=== PATIENT | male | born 1965 | race Caucasian/White ===

== ENCOUNTER → 2016-09-21 | Outpatient (CLI) | payer OTHER ==
[2016-09-21 14:20] LABS: Basophils % (A) 1 %; CH 27.4; CHCM 32.3; Eosinophils # (A) 0.2 k/uL (0-0.7); Eosinophils % (A) 3 %; HCT 47.7 % (39.0-53.0); HDW 2.67; HGB 14.8 gm/dL (13.0-17.5); Luc # (Auto) 0.19; Luc % (Auto) 3; Lymphocytes # (A) 1.5 k/uL (1.0-4.8); Lymphocytes % (A) 22 %; MCH 26.4 pg (25.0-35.0); MCV 85.3 fL (80.0-100.0); Mean Platelet Volume 8.1; Monocytes # (A) 0.8 k/uL (0-1.0); Monocytes % (A) 12 %; Neutrophils % (A) 60 %; RBC 5.59 m/uL (4.30-5.90); RDW 13.6 % (11.5-15.5); WBC 6.7 k/uL (3.8-10.6); WBC (Perox) 6.81
--- NOTE | 2016-09-21 14:35 | XR ---
EXAMINATION TYPE: XR chest 2V DATE OF EXAM: 09/21/2016 2:23 PM COMPARISON: Prior chest x-ray November 04, 2014. HISTORY: Pneumonia per order. TECHNIQUE: Frontal and lateral views of the chest are obtained. FINDINGS: There is no focal air space opacity, pleural effusion, or pneumothorax seen. Underlying em physematous change is felt present. The cardiac silhouette size is stable and enlarged. The osseous s tructures are intact. Cholecystectomy clips are noted. IMPRESSION: Chronic emphysematous change and cardiomegaly without acute pulmonary process identified .
[2016-09-21 14:49] LABS: Anion Gap 12 mmol/L; Blood Urea Nitrogen 12 mg/dL (9-20); Calcium 9.4 mg/dL (8.4-10.2); Carbon Dioxide 28 mmol/L (22-30); Chloride 103 mmol/L (98-107); Glucose 104 mg/dL (74-99); Non-African American GFR(MDRD) >60 (>60 ml/min/1.73 sqM); Potassium 4.3 mmol/L (3.5-5.1); Sodium 143 mmol/L (137-145)
== END | disposition home or self-care (01) ==
LOC: LABWHC1 13:56
PROVIDERS: ATTEND Internal Medicine
DX: J43.9 Emphysema, unspecified (principal); I51.7 Cardiomegaly; N39.0 Urinary tract infection, site not specified
CPT/HCPCS: 36415; 71020; 80048; 85025; 87502

== ENCOUNTER 2017-07-21 00:30 | Emergency (ER) | payer OTHER ==
[2017-07-21 00:40] VITALS: BP 178/107; PULSE 89; RESP 18; TEMP 98.2
--- NOTE | 2017-07-21 01:11 | XR ---
EXAMINATION TYPE: XR knee complete LT DATE OF EXAM: 07/21/2017 COMPARISON: NONE HISTORY: Pain TECHNIQUE: 3 views FINDINGS: I see no fracture nor dislocation. Joint spaces are fairly normal. There is no sign of knee joint effusion. IMPRESSION: Negative left knee exam
[2017-07-21] MEDS ORDERED: HYDROmorphone 1 MG/ML 1 ML SYRINGE IM STA (01:22)
--- NOTE | 2017-07-27 01:02 | CDI ---
Dear Missael DOE, PAC: Please do addendum ER document. Thank you, Julio Haley, Aerophysics Engineer. If you have any questions, please contact [employer] at [phone]. FIORD
== END 2017-07-21 01:42 | disposition home or self-care (01) ==
LOC: EC 00:30
DX: S89.92XA Unspecified injury of left lower leg, initial encounter (principal); E78.5 Hyperlipidemia, unspecified; I10 Essential (primary) hypertension; Z79.52 Long term (current) use of systemic steroids; Z79.899 Other long term (current) drug therapy; Z88.1 Allergy status to other antibiotic agents; Z98.890 Other specified postprocedural states; X58.XXXA Exposure to other specified factors, initial encounter
CPT/HCPCS: 73562; 99283; 96372; L1830; J1170

== ENCOUNTER 2018-10-15 12:36 | Emergency (ER) | payer BC, OTHER ==
[2018-10-15] MEDS ORDERED: ONDANSETRON 4 MG/2 ML VIAL IVP STA (12:59)
[2018-10-15] MEDS ORDERED: SODIUM CHLORIDE 0.9% 1,000 ML IV ONE ×2 (13:00→15:21)
--- NOTE | 2018-10-15 13:04 | ED ---
General Adult HPI <Manjinder Ballesteros - Last Filed: 10/15/18 16:19> - General Source: patient, RN notes reviewed Mode of arrival: ambulatory Limitations: no limitations <Cherelle Vo - Last Filed: 10/15/18 21:07> - General Chief complaint: Nausea/Vomiting/Diarrhea Stated complaint: Acute diverticular disesase Time Seen by Provider: 10/15/18 12:48 - History of Present Illness Initial comments: Patient is a 53-year-old male who presents the emergency department with his with complaint of nausea, vomiting, diarrhea and abdominal pain that started yesterday. He reports having about 15 episodes of diarrhea last night and about 5 or 6 today. He reports they are watery; no blood. Reports one episode of vomiting today; nonbloody, nonbilious. The abdominal pain is in the lower abdomen and hurts worse with pressure. Also reports a fever at home that was low-grade. Also reports feeling fatigued. Patient denies any recent shortness of breath, chest pain, back pain, numbness or tingling, dysuria or hematuria, headaches or visual changes, or any other complaints. (Cherelle Vo) - Related Data Home Medications Medication Instructions Recorded Confirmed Fenofibrate,Micronized 134 mg PO DAILY 10/21/14 10/15/18 [Fenofibrate] Omeprazole [PriLOSEC] 20 mg PO [id number] 10/21/14 10/15/18 Ascorbic Acid [Vitamin C] 1,000 mg PO DAILY 10/15/18 10/15/18 Cholecalciferol [Vitamin D3] 2,000 unit PO DAILY 10/15/18 10/15/18 Fenofibrate,Micronized 134 mg PO DAILY 10/15/18 10/15/18 [Fenofibrate] Fosinopril Sodium [Monopril] 20 mg PO DAILY 10/15/18 10/15/18 Metoprolol Succinate [Toprol XL] 50 mg PO DAILY 10/15/18 10/15/18 Previous Rx's Medication Instructions Recorded Ondansetron Odt [Zofran ODT] 4 mg PO Q8HR PRN #20 tab 10/15/18 Allergies Allergy/AdvReac Type Severity Reaction Status Date / Time tetracycline Allergy Diarrhea Verified 10/15/18 13:02 Review of Systems ROS Other: All systems not noted in ROS Statement are negative. <FavianManjinder - Last Filed: 10/15/18 16:19> ROS Other: All systems not noted in ROS Statement are negative. <VoCherelle Zaira - Last Filed: 10/15/18 21:07> ROS Statement: Those systems with pertinent positive or pertinent negative responses have been documented in the HPI. Past Medical History Past Medical History: Hyperlipidemia, Hypertension Additional Past Medical History / Comment(s): kidney stones History of Any Multi-Drug Resistant Organisms: None Reported Past Surgical History: Cholecystectomy Additional Past Surgical History / Comment(s): left knee surgery Past Psychological History: No Psychological Hx Reported Smoking Status: Never smoker Past Alcohol Use History: Rare Past Drug Use History: None Reported <Cherelle Vo Zaira - Last Filed: 10/15/18 21:07> General Exam Limitations: no limitations General appearance: alert, in no apparent distress Head exam: Present: atraumatic, normocephalic Eye exam: Present: normal appearance Respiratory exam: Present: normal lung sounds bilaterally. Absent: wheezes, rales, rhonchi Cardiovascular Exam: Present: tachycardia GI/Abdominal exam: Present: soft, tenderness (Right lower and left lower quadrants.), normal bowel sounds. Absent: distended, guarding, rigid Extremities exam: Present: normal inspection Neurological exam: Present: alert, oriented X3 Skin exam: Present: warm, dry <VoCherelle Zaira - Last Filed: 10/15/18 21:07> Course <Manjinder Ballesteros - Last Filed: 10/15/18 16:19> <Cherelle Vo Zaira - Last Filed: 10/15/18 21:07> Vital Signs 10/15/18 10/15/18 10/15/18 12:44 14:00 14:30 Temperature 99.4 F Pulse Rate 130 H 106 H 106 H Respiratory 20 17 16 Rate Blood Pressure 146/85 118/97 120/79 O2 Sat by Pulse 95 96 96 Oximetry 10/15/18 10/15/18 10/15/18 15:00 15:30 17:08 Temperature 98.5 F Pulse Rate 100 108 H 102 H Respiratory 18 18 18 Rate Blood Pressure 125/95 117/90 120/89 O2 Sat by Pulse 97 97 96 Oximetry - Reevaluation(s) Reevaluation #1: 10/15/18 16:19 PA supervision: I personally do a [id number] evaluation patient did discuss the findings with him and his family. Patient did have lower abdominal pain and diarrhea since chest today. He does demonstrate evidence of dehydration with tachycardia. He has no pain in his chest he does have some occasional lower abdominal discomfort. And 1 episode nausea vomiting. Computed tomography scan shows diverticulosis but no evidence of diverticulitis or other pathology at this time. I did discuss the case with Dr. Dawn. Patient will be discharged after influenza testing and he will be getting a prescription for stool evaluation. Thus far he cannot produce urine but has had no symptoms. ( Manjinder Ballesteros) Medical Decision Making - Lab Data Result diagrams: 10/15/18 13:40 10/15/18 13:40 <Manjinder Ballesteros - Last Filed: 10/15/18 16:19> - Lab Data Result diagrams: 10/15/18 13:40 10/15/18 13:40 <Cherelle Vo - Last Filed: 10/15/18 21:07> - Medical Decision Making Patient was tachycardic and given two 1,000 mL fluid boluses of normal saline. Given Zofran for nausea. CT of the abdomen and pelvis revealed moderate fatty infiltration through the liver. It also revealed a few scattered diverticuli without acute diverticulitis within the sigmoid colon region. Influenza swabs ordered; patient wishes to have results after discharge. Stool studies and UA ordered; patient was able to give samples here and wishes to have results after discharge. Will prescribe Zofran. Patient instructed to follow-up with his PCP tomorrow. Case discussed in detail with attending physician Dr. Ballesteros. (Cherelle Vo) - Lab Data Lab Results 10/15/18 10/15/18 10/15/18 Range/Units 13:40 13:40 13:40 WBC 8.9 (3.8-10.6) k/uL RBC 6.26 H (4.30-5.90) m/uL Hgb 16.4 (13.0-17.5) gm/dL Hct 51.6 (39.0-53.0) % MCV 82.3 (80.0-100.0) fL MCH 26.1 (25.0-35.0) pg MCHC 31.7 (31.0-37.0) g/dL RDW 14.1 (11.5-15.5) % Plt Count 208 (150-450) k/uL Neutrophils % 78 % Lymphocytes % 12 % Monocytes % 7 % Eosinophils % 1 % Basophils % 0 % Neutrophils # 7.0 (1.3-7.7) k/uL Lymphocytes # 1.0 (1.0-4.8) k/uL Monocytes # 0.6 (0-1.0) k/uL Eosinophils # 0.1 (0-0.7) k/uL Basophils # 0.0 (0-0.2) k/uL Sodium 139 (137-145) mmol/L Potassium 4.4 (3.5-5.1) mmol/L Chloride 105 (98-107) mmol/L Carbon Dioxide 20 L (22-30) mmol/L Anion Gap 14 mmol/L BUN 17 (9-20) mg/dL Creatinine 0.95 (0.66-1.25) mg/dL Est GFR (CKD-EPI)AfAm >90 (>60 ml/min/1.73 sqM) Est GFR (CKD-EPI)NonAf >90 (>60 ml/min/1.73 sqM) Glucose 127 H (74-99) mg/dL Plasma Lactic Acid José Antonio 1.7 (0.7-2.0) mmol/L Calcium 10.1 (8.4-10.2) mg/dL Total Bilirubin 1.9 H (0.2-1.3) mg/dL AST 48 (17-59) U/L ALT 77 H (21-72) U/L Alkaline Phosphatase 50 (38-126) U/L Total Protein 8.9 H (6.3-8.2) g/dL Albumin 5.1 H (3.5-5.0) g/dL Lipase 107 (23-300) U/L Urine Color Urine Appearance (Clear) Urine pH (5.0-8.0) Ur Specific Worth (1.001-1.035) Urine Protein (Negative) Urine Glucose (UA) (Negative) Urine Ketones (Negative) Urine Blood (Negative) Urine Nitrite (Negative) Urine Bilirubin (Negative) Urine Urobilinogen (<2.0) mg/dL Ur Leukocyte Esterase (Negative) C. difficile (EIA) Intrp (Negative) Influenza Type A RNA (Not Detectd) Influenza Type B (PCR) (Not Detectd) 10/15/18 10/15/18 10/15/18 Range/Units 16:35 16:45 16:57 WBC (3.8-10.6) k/uL RBC (4.30-5.90) m/uL Hgb (13.0-17.5) gm/dL Hct (39.0-53.0) % MCV (80.0-100.0) fL MCH (25.0-35.0) pg MCHC (31.0-37.0) g/dL RDW (11.5-15.5) % Plt Count (150-450) k/uL Neutrophils % % Lymphocytes % % Monocytes % % Eosinophils % % Basophils % % Neutrophils # (1.3-7.7) k/uL Lymphocytes # (1.0-4.8) k/uL Monocytes # (0-1.0) k/uL Eosinophils # (0-0.7) k/uL Basophils # (0-0.2) k/uL Sodium (137-145) mmol/L Potassium (3.5-5.1) mmol/L Chloride (98-107) mmol/L Carbon Dioxide (22-30) mmol/L Anion Gap mmol/L BUN (9-20) mg/dL Creatinine (0.66-1.25) mg/dL Est GFR (CKD-EPI)AfAm (>60 ml/min/1.73 sqM) Est GFR (CKD-EPI)NonAf (>60 ml/min/1.73 sqM) Glucose (74-99) mg/dL Plasma Lactic Acid José Antonio (0.7-2.0) mmol/L Calcium (8.4-10.2) mg/dL Total Bilirubin (0.2-1.3) mg/dL AST (17-59) U/L ALT (21-72) U/L Alkaline Phosphatase (38-126) U/L Total Protein (6.3-8.2) g/dL Albumin (3.5-5.0) g/dL Lipase (23-300) U/L Urine Color Yellow Urine Appearance Clear (Clear) Urine pH 6.0 (5.0-8.0) Ur Specific Worth >1.050 H (1.001-1.035) Urine Protein Trace H (Negative) Urine Glucose (UA) Negative (Negative) Urine Ketones Negative (Negative) Urine Blood Negative (Negative) Urine Nitrite Negative (Negative) Urine Bilirubin Negative (Negative) Urine Urobilinogen <2.0 (<2.0) mg/dL Ur Leukocyte Esterase Negative (Negative) C. difficile (EIA) Intrp Negative (Negative) Influenza Type A RNA Not Detected (Not Detectd) Influenza Type B (PCR) Not Detected (Not Detectd) Disposition <Manjinder Ballesteros - Last Filed: 10/15/18 16:19> Is patient prescribed a controlled substance at d/c from ED?: No Time of Disposition: 16:59 <Cherelle Vo - Last Filed: 10/15/18 21:07> Clinical Impression: Vomiting and diarrhea Disposition: HOME SELF-CARE Condition: Good Instructions (If sedation given, give patient instructions): Acute Nausea and Vomiting (ED), Acute Diarrhea (ED) Additional Instructions: Follow-up with your PCP tomorrow. Drink plenty of fluids. Return to the emergency department if your symptoms worsen or other concerns. Prescriptions: Ondansetron Odt [Zofran ODT] 4 mg PO Q8HR PRN #20 tab PRN Reason: Nausea Referrals: Yandel Dawn MD [Primary Care Provider] - 1-2 days
[2018-10-15 14:11] LABS: Basophils % (A) 0 %; Eosinophils # (A) 0.1 k/uL (0-0.7); Eosinophils % (A) 1 %; HCT 51.6 % (39.0-53.0); HGB 16.4 gm/dL (13.0-17.5); Lymphocytes % (A) 12 %; MCH 26.1 pg (25.0-35.0); MCHC 31.7 g/dL (31.0-37.0); MCV 82.3 fL (80.0-100.0); Mean Platelet Volume 7.2; Monocytes # (A) 0.6 k/uL (0-1.0); Monocytes % (A) 7 %; Neutrophils % (A) 78 %; Platelet Count 208 k/uL (150-450); RBC 6.26 m/uL (4.30-5.90); RDW 14.1 % (11.5-15.5); WBC 8.9 k/uL (3.8-10.6)
[2018-10-15 14:31] LABS: ALT 77 U/L (21-72); AST 48 U/L (17-59); Albumin 5.1 g/dL (3.5-5.0); Alkaline Phosphatase 50 U/L (38-126); Anion Gap 14 mmol/L; Blood Urea Nitrogen 17 mg/dL (9-20); Calcium 10.1 mg/dL (8.4-10.2); Carbon Dioxide 20 mmol/L (22-30); Chloride 105 mmol/L (98-107); Glucose 127 mg/dL (74-99); Lipase 107 U/L (23-300); Potassium 4.4 mmol/L (3.5-5.1); Sodium 139 mmol/L (137-145); Total Bilirubin 1.9 mg/dL (0.2-1.3); Total Protein 8.9 g/dL (6.3-8.2)
--- NOTE | 2018-10-15 15:12 | CT ---
EXAMINATION TYPE: CT abdomen pelvis w con DATE OF EXAM: 10/15/2018 COMPARISON: 10/21/2014 INDICATION: Lower abdominal pain. DLP: 1638 mGycm, Automated exposure control for dose reduction was used. CONTRAST: 100ml mL of Isovue 300. Study performed without Oral Contrast TECHNIQUE: Axial images were obtained from above the diaphragm to the pubic rami in the axial plane a t 5 mm thick sections. Reconstructed images are reviewed on the computer in the coronal plane. FINDINGS: Limited CT sections are obtained the lung bases. The lung bases are clear. CT ABDOMEN: Liver: There is moderate fatty infiltration through the liver. Spleen: Normal Pancreas: Normal Adrenal glands: The adrenal glands are normal. Gallbladder: Gallbladder is absent. Kidneys: No masses are evident. No hydronephrosis is present. No cysts are present. Delayed images were obtained through the kidneys, which remain unremarkable. Aorta: Normal Inferior vena cava: Normal. CT PELVIS: Scattered small inguinal adenopathy is present bilaterally Loops of bowel within the abdomen and pelvis are normal. Studies performed without oral contrast limiting their evaluation. A few scattered diverticuli without acute diverticulitis are within the si gmoid colon region. Appendix: Normal as visualized. Urinary bladder: Normal. Genitourinary structures: Prostate is unremarkable. Osseous structures: No suspicious lytic or sclerotic lesions. IMPRESSIONS: 1. Moderate fatty infiltration liver.
[2018-10-15 15:54] VITALS: RESP 18
[2018-10-15 17:05] LABS: Appearance,Urine Clear (Clear); Bilirubin,Urine Negative (Negative); Blood,Urine Negative (Negative); Color,Urine Yellow; Glucose,Urine (UA) Negative (Negative); Ketones,Urine Negative (Negative); Leukocyte Esterase,Urine Negative (Negative); Nitrite,Urine Negative (Negative); Protein,Urine Trace (Negative); Urobilinogen,Urine <2.0 mg/dL (<2.0)
[2018-10-15 17:14] VITALS: BP 120/89; PULSE 102; TEMP 98.5
[2018-10-15 17:24] LABS: Specific Gravity,Urine >1.050 (1.001-1.035)
== END 2018-10-15 17:15 | disposition home or self-care (01) ==
LOC: EC 12:36
DX: R11.2 Nausea with vomiting, unspecified (principal); R19.7 Diarrhea, unspecified; K57.30 Diverticulosis of large intestine without perforation or abscess without bleeding; K76.0 Fatty (change of) liver, not elsewhere classified; R00.0 Tachycardia, unspecified; E78.5 Hyperlipidemia, unspecified; I10 Essential (primary) hypertension; Z79.899 Other long term (current) drug therapy; Z88.1 Allergy status to other antibiotic agents; Z90.49 Acquired absence of other specified parts of digestive tract
CPT/HCPCS: 36415; 80053; 83605; 83690; 85025; 81003; 87324; 87045; 87329; 87328; 83630; 87046; 87502; 74177; 99284; 96374; 96361 ×4; J2405; Q9967

== ENCOUNTER → 2019-07-28 | Outpatient (CLI) | payer BC ==
[2019-07-28 12:58] LABS: Basophils # (A) 0.1 k/uL (0-0.2); Basophils % (A) 1 %; Eosinophils # (A) 0.1 k/uL (0-0.7); Eosinophils % (A) 2 %; HCT 45.1 % (39.0-53.0); HGB 14.5 gm/dL (13.0-17.5); Lymphocytes # (A) 1.2 k/uL (1.0-4.8); Lymphocytes % (A) 20 %; MCH 27.7 pg (25.0-35.0); MCHC 32.2 g/dL (31.0-37.0); MCV 85.9 fL (80.0-100.0); Mean Platelet Volume 6.3; Monocytes # (A) 0.4 k/uL (0-1.0); Monocytes % (A) 7 %; Neutrophils % (A) 68 %; Platelet Count 186 k/uL (150-450); RBC 5.25 m/uL (4.30-5.90)
--- NOTE | 2019-07-28 13:18 | XR ---
EXAMINATION TYPE: XR chest 2V DATE OF EXAM: 07/28/2019 COMPARISON: 09/21/2016 HISTORY: Bronchitis, cough TECHNIQUE: Frontal and lateral views of the chest are obtained. FINDINGS: There is no focal air space opacity, pleural effusion, or pneumothorax seen. The cardiac silhouette size is mildly enlarged as seen on the prior. The osseous structures are intact. Bridgin g anterior osteophytes are seen of the thoracic spine suggesting diffuse skeletal hyperostosis. IMPRESSION: No acute cardiopulmonary process.
== END | disposition home or self-care (01) ==
LOC: LABWHC1 11:25
PROVIDERS: ATTEND Internal Medicine
DX: R05 Cough (principal); J06.9 Acute upper respiratory infection, unspecified
CPT/HCPCS: 36415; 71046; 82785; 85025; 87502

== ENCOUNTER → 2019-09-19 | Outpatient (CLI) | payer BC ==
[2019-09-19 10:15] LABS: Basophils % (A) 1 %; Eosinophils # (A) 0.2 k/uL (0-0.7); Eosinophils % (A) 2 %; HCT 45.7 % (39.0-53.0); HGB 14.7 gm/dL (13.0-17.5); Lymphocytes # (A) 2.1 k/uL (1.0-4.8); Lymphocytes % (A) 33 %; MCH 27.5 pg (25.0-35.0); MCHC 32.1 g/dL (31.0-37.0); MCV 85.6 fL (80.0-100.0); Mean Platelet Volume 7.9; Monocytes # (A) 0.5 k/uL (0-1.0); Monocytes % (A) 7 %; Neutrophils # (A) 3.2 k/uL (1.3-7.7); Neutrophils % (A) 52 %; Platelet Count 189 k/uL (150-450); RBC 5.34 m/uL (4.30-5.90); RDW 13.2 % (11.5-15.5); WBC 6.2 k/uL (3.8-10.6)
[2019-09-19 12:00] LABS: Erythrocyte Sedimentation Rate 2 mm/hr (0-15)
[2019-09-19 17:20] LABS: ALT 46 U/L (10-49); AST 26 U/L (14-35); African American GFR (CKD) 111.8 (60.0-200.0); Albumin/Globulin Ratio 2.15 (1.60-3.17); Alkaline Phosphatase 42 U/L (41-126); BUN/Creat Ratio 16.67 Ratio (12.00-20.00); C Reactive Protein <0.4 mg/dL (0.0-0.8); Calcium 8.8 mg/dL (8.7-10.3); Chloride 109 mmol/L (96-109); Chol/HDL Ratio 4.46; Cholesterol 116 mg/dL (0-200); Creatine Kinase 90 U/L (35-257); Glucose 136 mg/dL (70-110); LDL Cholesterol,Calculated 74.4 mg/dL (0.0-131.0); Magnesium 1.9 mg/dL (1.5-2.4); Non-African American GFR(CKD) 96.5 (60.0-200.0); Phosphorus 2.9 mg/dL (2.4-5.1); Potassium 4.1 mmol/L (3.5-5.5); Sodium 142 mmol/L (135-145); Total Bilirubin 0.5 mg/dL (0.3-1.2); Total Protein 6.3 g/dL (6.2-8.2); Uric Acid 4.9 mg/dL (3.7-8.7)
[2019-09-19 17:54] LABS: Hemoglobin A1C 6.4 % (4.0-6.0)
== END | disposition home or self-care (01) ==
LOC: LABWHC1 09:44
PROVIDERS: ATTEND Internal Medicine
DX: I10 Essential (primary) hypertension (principal); N20.0 Calculus of kidney; E78.5 Hyperlipidemia, unspecified; J06.9 Acute upper respiratory infection, unspecified; E55.9 Vitamin D deficiency, unspecified
CPT/HCPCS: 36415; 80053; 80061; 82306; 82550; 83036; 83735; 83970; 84100; 84153; 84550; 85025; 85652; 86140

== ENCOUNTER → 2020-01-12 | Outpatient (CLI) | payer BC ==
[2020-01-12 16:58] LABS: Hemoglobin A1C 6.2 % (4.0-6.0)
== END | disposition home or self-care (01) ==
LOC: LABWHC1 09:13
PROVIDERS: ATTEND Internal Medicine
DX: E11.65 Type 2 diabetes mellitus with hyperglycemia (principal)
CPT/HCPCS: 36415; 82947; 83036

== ENCOUNTER 2020-06-02 12:18 | Emergency (ER) | payer BC ==
[2020-06-02 12:23] VITALS: BP 130/85; PULSE 111; RESP 18; TEMP 98.4
--- NOTE | 2020-06-02 12:44 | US ---
EXAMINATION TYPE: US venous doppler duplex LE RT DATE OF EXAM: 06/02/2020 12:13 PM COMPARISON: NONE CLINICAL HISTORY: M25.561 Pain in right knee. Rt leg pain and swelling s/p stepping out of shower las t night and hearing pop. SIDE PERFORMED: TECHNIQUE: The lower extremity deep venous system is examined utilizing real time linear array sonog emanuel with graded compression, doppler sonography and color-flow sonography. VESSELS IMAGED: External Iliac Vein (EIV) Common Femoral Vein Deep Femoral Vein Greater Saphenous Vein * Femoral Vein Popliteal Vein Small Saphenous Vein * Proximal Calf Veins (* superficial vessels) Right Leg: Positive thrombus within PTV IMPRESSION: 1. Lower extremity thrombus within the posterior tibial veins right leg. Office was notified of the r esults at time of imaging.
--- NOTE | 2020-06-02 12:46 | ED ---
General Adult HPI - General Chief complaint: Extremity Injury, Lower Stated complaint: Blood clot, sent over from ultrasound Time Seen by Provider: 06/02/20 12:20 Source: patient Mode of arrival: ambulatory Limitations: no limitations - History of Present Illness Initial comments: 54-year-old male with past medical history of hypertension who presents to emergency Department with reported positive DVT to the left lower extremity. Patient states that he injured his leg yesterday trying to get out of the shower. He felt a snapping sensation and has been unable to ambulate on the left lower. He saw Dr. Bell in office. He performed an x-ray. He sent for an ultrasound of his right lower extremity because he had calf pain. Patient had a done and was told it was positive. He was told medially go to the ER. Patient arrives and denies any chest pain or shortness of breath. No previous history of blood clots. No history of blood clotting disorders. Denies any contraindications to anticoagulation to include hemorrhagic stroke, GI bleeding, recent surgery. He denies any back or flank pain. No fevers or chills. Denies cough or hemoptysis. No numbness, tingling or weakness in his lower extremities. No other alleviating, precipitating or modifying factors - Related Data Home Medications Medication Instructions Recorded Confirmed Fenofibrate,Micronized 134 mg PO DAILY 10/21/14 06/02/20 [Fenofibrate] Metoprolol Succinate [Toprol XL] 50 mg PO DAILY 10/15/18 06/02/20 Cbd Oil 1 dose PO HS 06/02/20 06/02/20 Fexofenadine HCl [Rae Allergy] 180 mg PO DAILY PRN 06/02/20 06/02/20 amLODIPine [Norvasc] 10 mg PO HS 06/02/20 06/02/20 Previous Rx's Medication Instructions Recorded Apixaban [Eliquis Starter Pack 0 mg PO DIRECTED 30 Days #1 pack 06/02/20 (for VTE)] Allergies Allergy/AdvReac Type Severity Reaction Status Date / Time tetracycline AdvReac Diarrhea Verified 06/02/20 13:02 Review of Systems ROS Statement: Those systems with pertinent positive or pertinent negative responses have been documented in the HPI. ROS Other: All systems not noted in ROS Statement are negative. Past Medical History Past Medical History: Hyperlipidemia, Hypertension Additional Past Medical History / Comment(s): kidney stones History of Any Multi-Drug Resistant Organisms: None Reported Past Surgical History: Cholecystectomy Additional Past Surgical History / Comment(s): left knee surgery Past Psychological History: No Psychological Hx Reported Smoking Status: Never smoker Past Alcohol Use History: Rare Past Drug Use History: None Reported General Exam Limitations: no limitations General appearance: alert, in no apparent distress Head exam: Present: atraumatic, normocephalic, normal inspection Eye exam: Present: normal appearance, PERRL, EOMI. Absent: scleral icterus, conjunctival injection, periorbital swelling ENT exam: Present: normal exam, mucous membranes moist Neck exam: Present: normal inspection. Absent: tenderness, meningismus, lymphadenopathy Respiratory exam: Present: normal lung sounds bilaterally. Absent: respiratory distress, wheezes, rales, rhonchi, stridor Cardiovascular Exam: Present: normal rhythm, tachycardia, normal heart sounds. Absent: systolic murmur, diastolic murmur, rubs, gallop, clicks GI/Abdominal exam: Present: soft, normal bowel sounds. Absent: distended, tenderness, guarding, rebound, rigid Extremities exam: Present: full ROM, tenderness (right calf), normal capillary refill, pedal edema (right calf). Absent: joint swelling, calf tenderness Back exam: Present: normal inspection Neurological exam: Present: alert, oriented X3, CN II-XII intact Psychiatric exam: Present: normal affect, normal mood Skin exam: Present: warm, dry, intact, normal color. Absent: rash Course Vital Signs 06/02/20 12:21 Temperature 98.4 F Pulse Rate 111 H Respiratory 18 Rate Blood Pressure 130/85 O2 Sat by Pulse 96 Oximetry EKG Findings - EKG Comments: EKG Findings:: EKG demonstrates sinus tachycardia with a ventricular rate of 113. MA interval 178. QRS 110. QTC 460. There is an incomplete right bundle branch block. Q waves in lead 3. No acute ST segment elevations Medical Decision Making - Medical Decision Making Upon arrival patient was placed into room 7. A thorough history and physical exam is performed. Patient has a 12-lead EKG performed due to his tachycardia. He demonstrates a sinus tachycardia. He denies any complaint of chest pain or shortness of breath. I did recommend a CT PE study. Peripheral IV is established. Laboratory studies were conducted. Chest CT is performed which demonstrates no persistent filling defects to suggest an acute PE however contrast timing is predominant within the aorta. I do discuss results with the patient. I do state that is nondiagnostic test. I recommended VQ scan for which the patient did not want to proceed with. I did also offer hospital admission which the patient refused. He is made aware of the risks of leaving without a full examination. These risks include permanent disability and even . The patient is given a dose of Elquis in the emergency room. He is given a prescription for an Elquis starter pack. He needs to follow up with his primary care physician in regards to his anticoagulation. I did recommend that the patient needs a another CAT scan within the next week to evaluate for PE. If he has any new or worsening symptoms or does agree to Hospital admission he can return to the emergency room. The patient was discharged home in stable condition - Lab Data Result diagrams: 06/02/20 12:49 06/02/20 12:49 Lab Results 06/02/20 06/02/20 06/02/20 Range/Units 12:49 12:49 12:49 WBC 8.1 (3.8-10.6) k/uL RBC 5.21 (4.30-5.90) m/uL Hgb 14.0 (13.0-17.5) gm/dL Hct 43.7 (39.0-53.0) % MCV 83.8 (80.0-100.0) fL MCH 26.8 (25.0-35.0) pg MCHC 32.0 (31.0-37.0) g/dL RDW 13.0 (11.5-15.5) % Plt Count 187 (150-450) k/uL Neutrophils % 86 % Lymphocytes % 9 % Monocytes % 4 % Eosinophils % 1 % Basophils % 0 % Neutrophils # 6.9 (1.3-7.7) k/uL Lymphocytes # 0.7 L (1.0-4.8) k/uL Monocytes # 0.3 (0-1.0) k/uL Eosinophils # 0.1 (0-0.7) k/uL Basophils # 0.0 (0-0.2) k/uL PT 11.1 (9.0-12.0) sec INR 1.1 (<1.2) APTT 23.1 (22.0-30.0) sec Sodium 138 (137-145) mmol/L Potassium 4.2 (3.5-5.1) mmol/L Chloride 107 (98-107) mmol/L Carbon Dioxide 23 (22-30) mmol/L Anion Gap 8 mmol/L BUN 16 (9-20) mg/dL Creatinine 0.72 (0.66-1.25) mg/dL Est GFR (CKD-EPI)AfAm >90 (>60 ml/min/1.73 sqM) Est GFR (CKD-EPI)NonAf >90 (>60 ml/min/1.73 sqM) Glucose 158 H (74-99) mg/dL Calcium 9.2 (8.4-10.2) mg/dL Total Bilirubin 0.7 (0.2-1.3) mg/dL AST 48 (17-59) U/L ALT 53 H (4-49) U/L Alkaline Phosphatase 58 (38-126) U/L Total Protein 7.6 (6.3-8.2) g/dL Albumin 4.7 (3.5-5.0) g/dL Disposition Clinical Impression: Tachycardia, Acute DVT (deep venous thrombosis) Disposition: HOME SELF-CARE Condition: Stable Instructions (If sedation given, give patient instructions): Deep Vein Thrombos is (ED) Additional Instructions: Please follow-up with your primary care doctor. I recommend a repeat CT of your chest. Return to the emergency room for any new or worsening symptoms Prescriptions: Apixaban [Eliquis Starter Pack (for VTE)] 0 mg PO DIRECTED 30 Days #1 pack Is patient prescribed a controlled substance at d/c from ED?: No Referrals: Yandel Dawn MD [Primary Care Provider] - 1-2 days Time of Disposition: 15:09
[2020-06-02 13:03] LABS: Basophils % (A) 0 %; Eosinophils # (A) 0.1 k/uL (0-0.7); Eosinophils % (A) 1 %; HCT 43.7 % (39.0-53.0); Lymphocytes # (A) 0.7 k/uL (1.0-4.8); Lymphocytes % (A) 9 %; MCH 26.8 pg (25.0-35.0); MCV 83.8 fL (80.0-100.0); Mean Platelet Volume 7.2; Monocytes # (A) 0.3 k/uL (0-1.0); Monocytes % (A) 4 %; Neutrophils # (A) 6.9 k/uL (1.3-7.7); Neutrophils % (A) 86 %; Platelet Count 187 k/uL (150-450); RBC 5.21 m/uL (4.30-5.90); WBC 8.1 k/uL (3.8-10.6)
[2020-06-02 13:14] LABS: ALT 53 U/L (4-49); AST 48 U/L (17-59); African American GFR (CKD) >90 (>60 ml/min/1.73 sqM); Albumin 4.7 g/dL (3.5-5.0); Alkaline Phosphatase 58 U/L (38-126); Anion Gap 8 mmol/L; Blood Urea Nitrogen 16 mg/dL (9-20); Calcium 9.2 mg/dL (8.4-10.2); Carbon Dioxide 23 mmol/L (22-30); Chloride 107 mmol/L (98-107); Glucose 158 mg/dL (74-99); Non-African American GFR(CKD) >90 (>60 ml/min/1.73 sqM); Potassium 4.2 mmol/L (3.5-5.1); Sodium 138 mmol/L (137-145); Total Bilirubin 0.7 mg/dL (0.2-1.3); Total Protein 7.6 g/dL (6.3-8.2)
[2020-06-02 13:21] LABS: INR 1.1 (<1.2); Partial Thromboplastin Time 23.1 sec (22.0-30.0); Prothrombin Time 11.1 sec (9.0-12.0)
--- NOTE | 2020-06-02 14:25 | CT ---
CT CHEST FOR PULMONARY EMBOLISM. EXAMINATION TYPE: CT chest angio for PE DATE OF EXAM: 06/02/2020 INDICATION: positive DVT CT DLP: 691.8 mGycm, Automated exposure control for dose reduction was used. CONTRAST: Patient injected with 100 mL of Isovue 370. COMPARISON: None TECHNIQUE: CT of the chest is performed on a spiral scan at 2 mm thick sections. Study is performed with intravenous contrast timed for evaluation for pulmonary embolism. Contrast timing hours delayed and is suboptimal for adequate evaluation for pulmonary embolism. This will limit additional portion s of the evaluation. 3-D MIP images reconstructed by the technologist are reviewed on the computer i n the coronal and sagittal planes. FINDINGS: No persistent filling defects are evident to suggest an acute pulmonary embolism. However, contrast t iming is predominantly within the aorta with washout of the pulmonary arteries making examination non diagnostic for pulmonary embolism No mediastinal or hilar adenopathy enlarged by CT criteria is evident. The ascending aorta diameter at the level of the main pulmonary artery is 4.1 cm. The main pulmonary artery diameter at the bifur cation is 3.2 cm. Lung windows are clear. Limited CT section through the upper abdomen. Moderate fatty infiltration to the liver is evident IMPRESSIONS: 1. Nondiagnostic examination for pulmonary embolism. 2. Ascending thoracic aortic aneurysm of 4.1 cm.
[2020-06-02] MEDS ORDERED: APIXABAN 5 MG TAB PO STA (15:03)
== END 2020-06-02 15:29 | disposition home or self-care (01) ==
LOC: EC 12:18
DX: I82.402 Acute embolism and thrombosis of unspecified deep veins of left lower extremity (principal); R00.0 Tachycardia, unspecified; I10 Essential (primary) hypertension; E78.5 Hyperlipidemia, unspecified; Z79.899 Other long term (current) drug therapy; Z88.1 Allergy status to other antibiotic agents
CPT/HCPCS: 36415; 80053; 85025; 85610; 85730; 93971; 71275; 99284; Q9967

== ENCOUNTER → 2020-09-07 | Outpatient (CLI) | payer BC ==
--- NOTE | 2020-09-07 09:38 | US ---
EXAMINATION TYPE: US venous doppler duplex LE RT DATE OF EXAM: 09/07/2020 9:02 AM COMPARISON: US 2019 CLINICAL HISTORY: Left lower extremity I82.5Z9 DVT. Follow up right leg DVT in PTV's SIDE PERFORMED: Right TECHNIQUE: The lower extremity deep venous system is examined utilizing real time linear array sonog emanuel with graded compression, doppler sonography and color-flow sonography. VESSELS IMAGED: Common Femoral Vein Deep Femoral Vein Greater Saphenous Vein * Femoral Vein Popliteal Vein Small Saphenous Vein * Proximal Calf Veins (* superficial vessels) Right Leg: Appears negative for DVT IMPRESSION: No evidence for DVT at this time.
== END | disposition home or self-care (01) ==
LOC: RADUSWWP 08:42
PROVIDERS: ATTEND Internal Medicine Hematology & Oncology
DX: I82.5Z9 Chronic embolism and thrombosis of unspecified deep veins of unspecified distal lower extremity (principal); Z88.8 Allergy status to other drugs, medicaments and biological substances; Z88.1 Allergy status to other antibiotic agents

== ENCOUNTER → 2020-10-19 | Outpatient (CLI) | payer BC ==
--- NOTE | 2020-10-19 23:49 | MR ---
EXAMINATION TYPE: MR knee RT wo con DATE OF EXAM: 10/19/2020 COMPARISON: None HISTORY: Right knee pain since May. Multiplanar multiecho imaging of the right knee was performed without contrast. The anterior and posterior cruciate ligaments are intact. There is a large knee joint effusion. There is abnormal increased signal throughout a large portion of the posterior horn of the medial meniscus and extending to the inferior surface. There is mild increased signal within the anterior horn of th e medial meniscus. There is increased signal within the anterior horn lateral meniscus without extension to the articula r surface. There is some patchy increased signal in the lateral femoral condyle on the T2 images. The collateral ligaments are intact. I see no fracture line. IMPRESSION: Complex tear of the posterior horn of the medial meniscus. Intrasubstance tear of the anterior horn o f the lateral meniscus and medial meniscus. No evidence of ligamentous tear. Large knee joint effusion. Evidence of a patchy bone bruise involving the lateral femoral condyle.
== END | disposition home or self-care (01) ==
LOC: RADMRIMAIN 19:57
PROVIDERS: ATTEND Orthopaedic Surgery
DX: S83.231A Complex tear of medial meniscus, current injury, right knee, initial encounter (principal); S83.281A Other tear of lateral meniscus, current injury, right knee, initial encounter; S83.241A Other tear of medial meniscus, current injury, right knee, initial encounter; M25.461 Effusion, right knee; S70.11XA Contusion of right thigh, initial encounter

== ENCOUNTER → 2020-10-26 | Outpatient (CLI) | payer BC ==
[2020-10-26 22:50] LABS: Basophils # (A) 0.04 X 10*3/uL (0.00-0.10); Basophils % (A) 0.7 %; Eosinophils # (A) 0.09 X 10*3/uL (0.04-0.35); Eosinophils % (A) 1.5 %; HCT 41.2 % (39.6-50.0); HGB 13.1 g/dL (13.0-17.0); Lymphocytes # (A) 1.97 X 10*3/uL (0.90-5.00); Lymphocytes % (A) 32.3 %; MCH 26.8 pg (27.0-32.0); MCHC 31.8 g/dL (32.0-37.0); MCV 84.3 fL (80.0-97.0); Mean Platelet Volume 10.7 fL (9.5-12.2); Monocytes # (A) 0.78 X 10*3/uL (0.20-1.00); Monocytes % (A) 12.8 %; Neutrophils # (A) 3.19 X 10*3/uL (1.80-7.70); Neutrophils % (A) 52.4 %; Platelet Count 209 X 10*3/uL (140-440); RBC 4.89 X 10*6/uL (4.40-5.60); RDW 13.8 % (11.5-14.5); WBC 6.09 X 10*3/uL (4.50-10.00)
[2020-10-27 01:50] LABS: African American GFR (CKD) 97.1 (60.0-200.0); Albumin 4.9 g/dL (3.80-4.90); Albumin/Globulin Ratio 2.23 (1.60-3.17); Calcium 9.2 mg/dL (8.7-10.3); Globulin 2.2 g/dL (1.6-3.3); Non-African American GFR(CKD) 83.8 (60.0-200.0); Potassium 4.6 mmol/L (3.5-5.5); Total Bilirubin 1.1 mg/dL (0.3-1.2); Total Protein 7.1 g/dL (6.2-8.2)
== END | disposition home or self-care (01) ==
LOC: LABWHC1 14:52
PROVIDERS: ATTEND Internal Medicine
DX: I10 Essential (primary) hypertension (principal)
CPT/HCPCS: 36415; 80053; 85025

== ENCOUNTER 2020-12-02 09:48 | Day surgery (SDC) | payer BC ==
[2020-11-14 15:32] VITALS: BMI 35.9
--- NOTE | 2020-11-17 08:56 | HP ---
HISTORY AND PHYSICAL CHIEF COMPLAINT: Right knee pain. 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 He stepped out of the shower and felt a snap in his knee. He notes continued pain, locking, and giving way ever since. He has tried medications in addition to use of brace and an injection without much relief. He notes daily symptoms. PAST MEDICAL HISTORY: Significant for asthma, type 2 diabetes, DVT, and hypertension. PAST SURGICAL HISTORY: Seen for cholecystectomy and left knee surgery. CURRENT MEDICATIONS: 1. Amlodipine. 2. Fosinopril. 3. Omeprazole. ALLERGIES: He has allergies to BENADRYL and TETRACYCLINES. FAMILY HISTORY: Significant for heart disease and lung disease. SOCIAL HISTORY: Significant for social alcohol use. REVIEW OF SYSTEMS: Sixteen-point review of systems is reviewed and is noncontributory. PHYSICAL EXAMINATION: On examination, the patient is approximately 6 feet tall, 260 pounds of endomorphic habitus. HEENT exam is nonfocal. Neck is supple. He has painless passive motion of the right hip. Straight leg raise is negative. Active motion right knee -8 to 95 degrees of flexion. He has a large effusion. He is tender about the medial joint line. Collaterals are stable, Fermin is negative, Vanita's elicits medial pain. His distal neurovascular exam appears intact in the right lower extremity. MRI report of the right knee shows evidence of a posterior medial meniscal tear in addition to a large effusion. IMPRESSION: 1. Internal derangement, right knee with symptomatic medial meniscal tear. 2. History of deep vein thrombosis in the lower extremities. RECOMMENDATIONS: I talked to the patient at length regarding his condition and treatment options. At this point, he is quite symptomatic, having pain and mechanical symptoms despite previous conservative measures. After thorough discussion, he opts to proceed with surgery. We will plan to proceed with arthroscopic evaluation with probable partial medial meniscectomy of the right knee. We will likely perform that as an outpatient procedure. Risks and benefits were discussed at length in layman's terms. MMODL / IJN: [id number] /
[~2020-12-02 09:48] MED LIST: DEXAMETHASONE SOD PHOSPHATE 4 MG/ML 1 ML VIAL IV ONE; LACTATED RINGERS 1,000 ML IV SCH; MIDAZOLAM 2 MG/2 ML VIAL IV PRN; SCOPOLAMINE 1.5MG/72HR PATCH TRANSDERM ONE; ceFAZolin 3 GM in SODIUM CHLORIDE 0.9% 100 ML IVPB PRN
[2020-12-02 10:24] VITALS: RESP 16; TEMP 97.4
[2020-12-02] MEDS ORDERED: LIDOCAINE 1% (10MG/ML) FOR IV START INTRADERMA ONE (10:40)
[2020-12-02] MEDS: ONDANSETRON 4 MG/2 ML VIAL IVP ONE ×2 (10:40→12:34)
[2020-12-02] MEDS ORDERED: fentaNYL (PF) 50 MCG/ML 2 ML AMP ONE (11:38)
[2020-12-02] MEDS ORDERED: EPINEPHrine (PF) 1 ML in SODIUM CHLORIDE 0.9% IRRIGATIO 3,000 ML IRRIGATION ONE ×4 (11:38)
[2020-12-02] MEDS ORDERED: MIDAZOLAM 2 MG/2 ML VIAL ONE (11:38)
[2020-12-02] MEDS ORDERED: ALBUTEROL HFA INHALER INHALATION ONE (11:38)
[2020-12-02] MEDS ORDERED: LIDOCAINE 1% INJ 10MG/ML (20 ML MDV) ONE (11:38)
[2020-12-02] MEDS ORDERED: PROPOFOL 10 MG/ML 20 ML VIAL IV ONE (11:38)
--- NOTE | 2020-12-02 12:27 | P.OP ---
Date of Procedure: 12/02/20 Preoperative Diagnosis: Right knee internal derangement Postoperative Diagnosis: Right knee posterior medial meniscal tear/posterior lateral meniscal tear Procedure(s) Performed: Right knee arthroscopic partial medial meniscectomy/partial lateral meniscectomy Anesthesia: BLANCAA Surgeon: Mingo Montejo Estimated Blood Loss (ml): 10 Pathology: none sent Condition: stable Disposition: PACU Indications for Procedure: Into 55-year-old male who presents with persistent/progressive right knee pain and mechanical symptoms after a previous twisting injury. A discussion of the risks and benefits of continued conservative measures versus operative intervention was made with patient. He opted to proceed with surgery. Operative risks to include infection, neurovascular injury, development of blood clots, possible incomplete resolution of symptoms, possible worsening symptoms and need for subsequent procedures was discussed. Informed consent was obtained. Operative Findings: As below Description of Procedure: The patient was brought to the operating room, and after induction of general anesthesia examined the right knee. Collaterals were stable, Fermin was negative, and posterior drawer was negative. The right lower extremity was prepped and draped in a normal fashion. A superior lateral portal was made through a 3 mm skin incision superior and lateral to the patella. This was used for outflow. A lateral portal was made through a 5 mm vertical skin incision lateral to the patella tendon above the joint line. Diagnostic arthroscopy was performed. On inspection of the medial compartment, and oblique tear involving the posterior horn of the medial meniscus in the white-red junction was noted. This was debrided back to stable base with straight baskets and a motorized shaver. Grade 2 chondral changes were noted diffusely in the medial compartment. On inspection of the notch, the anterior cruciate ligament appeared to be intact. On inspection of the lateral compartment, a posterior lateral meniscal tear was noted in the white-white junction. On inspection of the patellofemoral articulation, there was chondral fibrillation however no loose chondral fragments. The gutters were clear debris. The knee was then thoroughly irrigated. The portals were closed with Steri-Strips. A sterile dressing was applied in addition to a compression stocking. The patient was awoken from general anesthesia and transferred to recovery room in good condition. Blood loss was estimated at 10 mL. No complications were incurred.
[2020-12-02] MEDS: HYDROmorphone 0.5 MG/0.5 ML SYRINGE IVP PRN ×4 (12:30→13:07)
[2020-12-02 12:43] LABS: Glucose,Whole Blood 128 mg/dL (75-99)
[2020-12-02 13:35] VITALS: PULSE 82
[2020-12-02] MEDS ORDERED: HYDROcodone/APAP 5-325MG 1 EACH TAB ONE (13:45)
[2020-12-02] MEDS ORDERED: HYDROcodone/APAP 5-325MG 1 EACH TAB PO ONE (13:46)
[2020-12-02 13:47] VITALS: BP 134/84
== END 2020-12-02 14:48 | disposition home or self-care (01) ==
LOC: OR 09:48
PROVIDERS: ATTEND Orthopaedic Surgery
DX: S83.241A Other tear of medial meniscus, current injury, right knee, initial encounter (principal); S83.281A Other tear of lateral meniscus, current injury, right knee, initial encounter; X50.0XXA Overexertion from strenuous movement or load, initial encounter; I10 Essential (primary) hypertension; E11.9 Type 2 diabetes mellitus without complications; J45.909 Unspecified asthma, uncomplicated; Z86.718 Personal history of other venous thrombosis and embolism; Z79.899 Other long term (current) drug therapy; Z88.1 Allergy status to other antibiotic agents; Z88.8 Allergy status to other drugs, medicaments and biological substances; Z98.890 Other specified postprocedural states; Z90.49 Acquired absence of other specified parts of digestive tract; Z82.49 Family history of ischemic heart disease and other diseases of the circulatory system; Z83.6 Family history of other diseases of the respiratory system
CPT/HCPCS: 29880; J2250; J1100; J0690; J2405; J0171; J2001; J3010; J2704; J1170

== ENCOUNTER → 2021-05-27 | Outpatient (CLI) | payer BC ==
[2021-05-27 17:17] LABS: Basophils # (A) 0.05 X 10*3/uL (0.00-0.10); Basophils % (A) 0.7 %; Eosinophils # (A) 0.11 X 10*3/uL (0.04-0.35); Eosinophils % (A) 1.6 %; HGB 13.8 g/dL (13.0-17.0); Lymphocytes # (A) 1.31 X 10*3/uL (0.90-5.00); Lymphocytes % (A) 18.6 %; MCH 26.7 pg (27.0-32.0); MCHC 31.4 g/dL (32.0-37.0); MCV 85.3 fL (80.0-97.0); Monocytes # (A) 0.84 X 10*3/uL (0.20-1.00); Monocytes % (A) 11.9 %; Neutrophils # (A) 4.73 X 10*3/uL (1.80-7.70); Neutrophils % (A) 67.1 %; Platelet Count 196 X 10*3/uL (140-440); RBC 5.16 X 10*6/uL (4.40-5.60); RDW 13.2 % (11.5-14.5); WBC 7.05 X 10*3/uL (4.50-10.00)
[2021-05-27 18:19] LABS: African American GFR (CKD) 115.7 (60.0-200.0); Albumin 4.7 g/dL (3.80-4.90); Albumin/Globulin Ratio 1.96 (1.60-3.17); Anion Gap 5.6 mmol/L (4.00-12.00); BUN/Creat Ratio 13.75 Ratio (12.00-20.00); C Reactive Protein 1.5 mg/dL (0.0-0.8); Calcium 9.1 mg/dL (8.7-10.3); Carbon Dioxide 26.4 mmol/L (21.6-31.8); Chol/HDL Ratio 3.25; Globulin 2.4 g/dL (1.6-3.3); LDL Cholesterol,Calculated 57.6 mg/dL (0.0-131.0); Magnesium 1.9 mg/dL (1.5-2.4); Non-African American GFR(CKD) 99.9 (60.0-200.0); Phosphorus 2.9 mg/dL (2.4-5.1); Potassium 4.3 mmol/L (3.5-5.5); Total Protein 7.1 g/dL (6.2-8.2); VLDL Calculation 14.4 mg/dL (5.00-40.00)
[2021-05-27 18:28] LABS: Prostate Specific Antigen 0.4 ng/mL (0.0-3.5)
[2021-05-27 21:18] LABS: Hemoglobin A1C 7.1 % (4.0-6.0)
[2021-05-27 21:52] LABS: Erythrocyte Sedimentation Rate 3 mm/Hr (0-20)
== END | disposition home or self-care (01) ==
LOC: LABWHC1 08:09
PROVIDERS: ATTEND Internal Medicine
DX: Z00.00 Encounter for general adult medical examination without abnormal findings (principal); D64.9 Anemia, unspecified; I10 Essential (primary) hypertension; E78.5 Hyperlipidemia, unspecified; E11.65 Type 2 diabetes mellitus with hyperglycemia; N20.0 Calculus of kidney; E55.9 Vitamin D deficiency, unspecified; M81.0 Age-related osteoporosis without current pathological fracture
CPT/HCPCS: 36415; 80053; 80061; 82306; 82550; 83036; 83735; 84100; 84153; 84443; 85025; 85652; 86140

== ENCOUNTER → 2021-09-28 | Outpatient (CLI) | payer BC ==
--- NOTE | 2021-09-28 15:35 | XR ---
EXAMINATION TYPE: XR chest 2V DATE OF EXAM: 09/28/2021 COMPARISON: 07/28/2019 HISTORY: 55-year-old male cough, post COVID, congestion TECHNIQUE: Frontal and lateral views FINDINGS: Heart normal size. Aorta and pulmonary vasculature within normal limits. Some strandy atelectasis at the left base. [facility] in the mid and lower thoracic spine. No consolidation or pleural effusion. IMPRESSION: No acute process seen.
[2021-09-28 23:11] LABS: Basophils # (A) 0.05 X 10*3/uL (0.00-0.10); Basophils % (A) 0.7 %; Eosinophils # (A) 0.13 X 10*3/uL (0.04-0.35); Eosinophils % (A) 1.9 %; HCT 43.6 % (39.6-50.0); HGB 13.4 g/dL (13.0-17.0); Lymphocytes # (A) 1.72 X 10*3/uL (0.90-5.00); Lymphocytes % (A) 25.7 %; MCHC 30.7 g/dL (32.0-37.0); MCV 84.7 fL (80.0-97.0); Mean Platelet Volume 10.7 fL (9.5-12.2); Monocytes % (A) 11.9 %; Neutrophils # (A) 3.96 X 10*3/uL (1.80-7.70); Neutrophils % (A) 59.2 %; Platelet Count 204 X 10*3/uL (140-440); RBC 5.15 X 10*6/uL (4.40-5.60); RDW 13.7 % (11.5-14.5)
== END | disposition home or self-care (01) ==
LOC: LABWHC1 15:03
PROVIDERS: ATTEND Internal Medicine
DX: U09.9 Post COVID-19 condition, unspecified (principal)
CPT/HCPCS: 36415; 71046; 85025

== ENCOUNTER → 2021-10-21 | Outpatient (CLI) | payer BC ==
[2021-10-21 11:19] LABS: African American GFR (CKD) 114.9 (60.0-200.0); Anion Gap 10.2 mmol/L (10.00-18.00); BUN/Creat Ratio 15.5 Ratio (12.00-20.00); Blood Urea Nitrogen 12.4 mg/dL (9.0-27.0); Calcium 8.8 mg/dL (8.7-10.3); Carbon Dioxide 23.8 mmol/L (20.0-27.5); Non-African American GFR(CKD) 99.2 (60.0-200.0)
== END | disposition home or self-care (01) ==
LOC: LABWHC1 08:37
PROVIDERS: ATTEND Internal Medicine
DX: E11.9 Type 2 diabetes mellitus without complications (principal)
CPT/HCPCS: 36415; 80048; 83036

== ENCOUNTER → 2022-02-24 | Outpatient (CLI) | payer BC ==
[2022-02-24 16:18] LABS: African American GFR (CKD) 116.1 (60.0-200.0); Anion Gap 10.4 mmol/L (10.00-18.00); BUN/Creat Ratio 17.29 Ratio (12.00-20.00); Blood Urea Nitrogen 13.5 mg/dL (9.0-27.0); Calcium 9.3 mg/dL (8.7-10.3); Carbon Dioxide 23.3 mmol/L (20.0-27.5); Non-African American GFR(CKD) 100.2 (60.0-200.0); Potassium 3.7 mmol/L (3.5-5.5)
== END | disposition home or self-care (01) ==
LOC: LABWHC1 08:53
PROVIDERS: ATTEND Internal Medicine
DX: E11.65 Type 2 diabetes mellitus with hyperglycemia (principal); E87.8 Other disorders of electrolyte and fluid balance, not elsewhere classified
CPT/HCPCS: 36415; 80048; 83036

== ENCOUNTER → 2022-06-02 | Outpatient (CLI) | payer BC ==
[2022-06-02 15:53] LABS: Basophils # (A) 0.05 X 10*3/uL (0.00-0.10); Basophils % (A) 0.9 %; Eosinophils % (A) 1.8 %; HCT 44.1 % (39.6-50.0); HGB 14.1 g/dL (13.0-17.0); Immature Grans, Automated 0.4 %; Lymphocytes # (A) 1.81 X 10*3/uL (0.90-5.00); Lymphocytes % (A) 33.4 %; MCH 26.9 pg (27.0-32.0); Mean Platelet Volume 10.9 fL (9.5-12.2); Monocytes # (A) 0.72 X 10*3/uL (0.20-1.00); Monocytes % (A) 13.3 %; NRBC Per 100 WBC 0 /100 WBCS (0.0-0.0); Neutrophils # (A) 2.72 X 10*3/uL (1.80-7.70); Neutrophils % (A) 50.2 %; Platelet Count 210 X 10*3/uL (140-440); RBC 5.25 X 10*6/uL (4.40-5.60); RDW 13.9 % (11.5-14.5); WBC 5.42 X 10*3/uL (4.50-10.00)
[2022-06-02 16:30] LABS: Erythrocyte Sedimentation Rate 7 mm/Hr (0-20)
[2022-06-02 16:31] LABS: Chol/HDL Ratio 3.24 Ratio; LDL Cholesterol,Calculated 59.2 mg/dL (0.0-131.0); VLDL Calculation 17.54 mg/dL (5.00-40.00)
[2022-06-02 17:26] LABS: ALT 28 U/L (10-49); AST 25 U/L (14-35); African American GFR (CKD) 109.5 (60.0-200.0); Albumin 4.7 g/dL (3.8-4.9); Albumin/Globulin Ratio 1.88 (1.60-3.17); Alkaline Phosphatase 44 U/L (41-126); BUN/Creat Ratio 14.11 Ratio (12.00-20.00); Blood Urea Nitrogen 12.7 mg/dL (9.0-27.0); C Reactive Protein <0.30 mg/dL (0.00-0.80); Calcium 9.3 mg/dL (8.7-10.3); Carbon Dioxide 21.8 mmol/L (20.0-27.5); Chloride 104 mmol/L (96-109); Creatine Kinase 195 U/L (35-257); Globulin 2.5 g/dL (1.6-3.3); Glucose 123 mg/dL (70-110); Magnesium 2.2 mg/dL (1.5-2.4); Non-African American GFR(CKD) 94.5 (60.0-200.0); Phosphorus 2.6 mg/dL (2.4-5.1); Potassium 4.4 mmol/L (3.5-5.5); Sodium 139 mmol/L (135-145); Total Protein 7.2 g/dL (6.2-8.2)
[2022-06-02 19:54] LABS: Urine Creatinine 99.7 mg/dL (39.0-259.0)
== END | disposition home or self-care (01) ==
LOC: LABWHC1 08:47
PROVIDERS: ATTEND Internal Medicine
DX: Z00.00 Encounter for general adult medical examination without abnormal findings (principal); N40.0 Benign prostatic hyperplasia without lower urinary tract symptoms; I10 Essential (primary) hypertension; E78.5 Hyperlipidemia, unspecified; E11.65 Type 2 diabetes mellitus with hyperglycemia; E03.9 Hypothyroidism, unspecified; E55.9 Vitamin D deficiency, unspecified
CPT/HCPCS: 36415; 80053; 80061; 82043; 82306; 82550; 82570; 83036; 83735; 84100; 84153; 84443; 85025; 85652; 86140

== ENCOUNTER → 2022-08-13 | Outpatient (CLI) | payer BC ==
--- NOTE | 2022-08-13 12:11 | XR ---
EXAMINATION TYPE: XR chest 2V DATE OF EXAM: 08/13/2022 COMPARISON: 09/28/2021 INDICATION: Bronchitis, cough x3 weeks, worsening TECHNIQUE: Frontal and lateral views of the chest are obtained. FINDINGS: The heart size is normal. The pulmonary vasculature is normal. The lungs are clear. No suspicious peribronchial thickening is evident. Spondylosis and anterior vertebral calcification is noted. IMPRESSION: 1. No acute pulmonary process radiographically apparent.
[2022-08-13 18:03] LABS: Basophils # (A) 0.05 X 10*3/uL (0.00-0.10); Basophils % (A) 0.4 %; Eosinophils # (A) 0.03 X 10*3/uL (0.04-0.35); Eosinophils % (A) 0.3 %; HCT 45.2 % (39.6-50.0); HGB 14.1 g/dL (13.0-17.0); Immature Grans, Automated 1.1 %; Lymphocytes % (A) 16.8 %; MCH 26.3 pg (27.0-32.0); MCHC 31.2 g/dL (32.0-37.0); MCV 84.3 fL (80.0-97.0); Mean Platelet Volume 10.3 fL (9.5-12.2); Monocytes % (A) 7.9 %; NRBC Per 100 WBC 0 /100 WBCS (0.0-0.0); Neutrophils # (A) 8.34 X 10*3/uL (1.80-7.70); Neutrophils % (A) 73.5 %; Platelet Count 282 X 10*3/uL (140-440); RBC 5.36 X 10*6/uL (4.40-5.60); RDW 13.4 % (11.5-14.5); WBC 11.34 X 10*3/uL (4.50-10.00)
[2022-08-13 19:09] LABS: Anion Gap 9.6 mmol/L (10.00-18.00); BUN/Creat Ratio 16.27 Ratio (12.00-20.00); Calcium 9.3 mg/dL (8.7-10.3); Carbon Dioxide 25.4 mmol/L (20.0-27.5); Non-African American GFR(CKD) 99.2 (60.0-200.0)
== END | disposition home or self-care (01) ==
LOC: LABWHC1 10:25
PROVIDERS: ATTEND Internal Medicine
DX: J40 Bronchitis, not specified as acute or chronic (principal); J12.9 Viral pneumonia, unspecified
CPT/HCPCS: 36415; 71046; 80048; 85025

== ENCOUNTER → 2023-08-07 | Outpatient (CLI) | payer BC | END | disposition home or self-care (01) | LOC: LABWHC1 07:10 | PROVIDERS: ATTEND Internal Medicine | DX: E11.65 Type 2 diabetes mellitus with hyperglycemia (principal) | CPT/HCPCS: 36415; 82947; 83036 ==

== ENCOUNTER → 2024-09-12 | Outpatient (CLI) | payer BC ==
[2024-09-12 12:24] LABS: Creatinine,Urine Random 84.7 mg/dL; Protein/Creatinine Ratio,Urine 0.153
[2024-09-12 13:34] LABS: HGB 13.8 g/dL (13.0-17.0); MCH 26.4 pg (27.0-32.0); MCHC 32.1 g/dL (32.0-37.0); MCV 82.4 FL (80.0-97.0); Mean Platelet Volume 10.4 FL (9.5-12.2); NRBC Per 100 WBC 0 X 10*3/uL (0.00-0.01); Platelet Count 206 X 10*3/uL (140-440); RBC 5.22 X 10*6/uL (4.40-5.60); RDW 13.8 % (11.5-14.5); WBC 6.55 X 10*3/uL (4.50-10.00)
[2024-09-12 13:35] LABS: Basophils # (A) 0.04 X 10*3/uL (0.00-0.10); Basophils % (A) 0.6 %; Eosinophils # (A) 0.09 X 10*3/uL (0.04-0.35); Eosinophils % (A) 1.4 %; Lymphocytes # (A) 1.83 X 10*3/uL (0.90-5.00); Lymphocytes % (A) 27.9 %; Monocytes # (A) 0.65 X 10*3/uL (0.20-1.00); Monocytes % (A) 9.9 %; Neutrophils # (A) 3.91 X 10*3/uL (1.80-7.70); Neutrophils % (A) 59.7 %
[2024-09-12 13:42] LABS: Blood Urea Nitrogen 11.2 mg/dL (9.0-27.0); Calcium 8.8 mg/dL (8.7-10.3); Carbon Dioxide 24.9 mmol/L (21.6-31.8); Chloride 102 mmol/L (96-109); Glucose 348 mg/dL (70-110); Potassium 3.6 mmol/L (3.5-5.5); Sodium 137 mmol/L (135-145)
[2024-09-12 22:58] LABS: Microalbumin Creatinine Ratio <13 mg/g Cr (0-30); Urine Creatinine 90.8 mg/dL (39.0-259.0)
== END | disposition home or self-care (01) ==
LOC: LABWHC1 10:14
PROVIDERS: ATTEND Internal Medicine
DX: I10 Essential (primary) hypertension (principal); E87.8 Other disorders of electrolyte and fluid balance, not elsewhere classified; E11.65 Type 2 diabetes mellitus with hyperglycemia; J06.9 Acute upper respiratory infection, unspecified
CPT/HCPCS: 36415; 80048; 82043; 82570; 84156; 85025; 87636

== ENCOUNTER → 2024-10-03 | Outpatient (CLI) | payer BC | END | disposition home or self-care (01) | LOC: LABWHC1 08:20 | PROVIDERS: ATTEND Internal Medicine | DX: E11.65 Type 2 diabetes mellitus with hyperglycemia (principal) | CPT/HCPCS: 36415; 82947; 83036 ==